=== PATIENT | female | born 1950 | race Caucasian/White ===

== ENCOUNTER → 2019-11-21 | Outpatient (CLI) | payer MEDICARE ==
--- NOTE | 2019-11-21 12:32 | Diagnostic Imaging Report ---
CT BRAIN WO HISTORY: Alzheimer's COMPARISON: Report from MRI of the brain dated 10/04/2015, head CT 08/02/15 Technique: Noncontrast axial scans were obtained from skull base to the vertex. Coronal and sagittal reconstructions obtained from the axial data. One or more of the following dose reduction techniques were used: Automated exposure control, adjustment of the mA and/or kV according to patient size, and/or utilization of iterative reconstruction technique. DISCUSSION: Scalp/Skull: Unremarkable. Brain sulci: Mildly prominent, especially along the mesial temporal lobes. Ventricles: Compensatory dilatation. Extra-axial spaces: No masses or fluid collections. Carotid siphon calcifications are present. Parenchyma: Mild bilateral deep white matter hypodensity is likely chronic microvascular ischemic change. There is an old small cortical infarct in the right superior cerebellum. Otherwise, no masses, hemorrhage, or large vascular territory acute infarct. Dural sinuses: No abnormal densities. Sellar/Suprasellar region: Intact. Skull base: Intact. Incidental findings: None. IMPRESSION: 1. No acute intracranial abnormalities. 2. Mild generalized cerebral volume loss with slight predominance along the mesial temporal lobes; this is consistent with Alzheimer's disease. 3. Mild supratentorial chronic microvascular ischemic change. 4. 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 Signed by: Dr. Pepe Moreira M.D. on 11/21/2019 12:29 PM
== END ==
LOC: CT 11:22
PROVIDERS: ATTEND Psychiatry & Neurology Neurology
DX: G30.1 Alzheimer's disease with late onset (principal)
CPT/HCPCS: 70450